=== PATIENT | female | born 1990 | race American Indian/Alaskan Native ===

== ENCOUNTER 2021-09-01 14:47 | Emergency (ER) | payer SELFPAY ==
--- NOTE | 2021-09-01 15:12 | Emergency Department Report ---
ED Female HPI - General Chief complaint: Abdominal Pain Stated complaint: MISSCARRIAGE 18TH/ABD CRAMPING 1WK Time Seen by Provider: 09/01/21 14:58 Source: patient Mode of arrival: Ambulatory Limitations: No Limitations - History of Present Illness Initial comments: Chief complaint: Possible miscarriage HPI: This is a -0-4-1 who presents with possible miscarriage. Patient was evaluated and declined [facility] on August 12. Gestational sac was present on ultrasound. She still had persisted vaginal bleeding since that time. She denies fever. She has mild pelvic cramps. She denies vomiting. According to her estimation she is approximately 14 weeks MD Complaint: vaginal bleeding, pelvic pain -: Gradual, week(s) (Several weeks since August 12) Severity: mild Quality: cramping Consistency: constant Improves with: none Worsens with: none Are you Now?: Yes - Related Data Allergies Allergy/AdvReac Type Severity Reaction Status Date / Time sulfamethoxazole Allergy Swelling Verified 09/01/21 14:55 [From Bactrim] trimethoprim [From Bactrim] Allergy Swelling Verified 09/01/21 14:55 ED Review of Systems ROS: Stated complaint: MISSCARRIAGE 18TH/ABD CRAMPING 1WK Other details as noted in HPI Comment: All other systems reviewed and negative Constitutional: denies: chills, fever, malaise Respiratory: denies: cough Cardiovascular: denies: chest pain Gastrointestinal: abdominal pain. denies: nausea, vomiting Genitourinary: abnormal menses ED Past Medical Hx - Past Medical History Previous Medical History?: Yes Additional medical history: Incomplete miscarriage - Surgical History Past Surgical History?: Yes Additional Surgical History: 2 elective abortions - Social History Smoking Status: Current Every Day Smoker Substance Use Type: Marijuana ED Physical Exam - General Limitations: No Limitations General appearance: alert, in no apparent distress - Head Head exam: Present: atraumatic, normocephalic - Eye Eye exam: Present: normal appearance - ENT ENT exam: Present: mucous membranes moist - Neck Neck exam: Present: normal inspection, full ROM - Respiratory Respiratory exam: Present: normal lung sounds bilaterally. Absent: respiratory distress, wheezes, rales, rhonchi - Cardiovascular Cardiovascular Exam: Present: regular rate, normal rhythm, normal heart sounds. Absent: systolic murmur, diastolic murmur, rubs, gallop - GI/Abdominal GI/Abdominal exam: Present: soft, normal bowel sounds. Absent: distended, tenderness, guarding, rebound - Extremities Exam Extremities exam: Present: normal inspection - Neurological Exam Neurological exam: Present: alert, oriented X3, normal gait - Psychiatric Psychiatric exam: Present: normal affect, normal mood - Skin Skin exam: Present: warm, dry, intact, normal color. Absent: rash ED Course Vital Signs 09/01/21 14:54 Temperature 98.7 F Pulse Rate 78 Respiratory 18 Rate Blood Pressure 117/59 O2 Sat by Pulse 100 Oximetry ED Medical Decision Making - Radiology Data Radiology results: report reviewed Patient Name: MIROSLAVA PRETTY Gender: Female Date of : 1990 Referring Provider: INGA FUENTES Organization: [facility] Accession Number: [id number] Requested Date: September 01, 2021 15:08 Report Status: Final Requested Procedure: 1 Procedure Description: US OB <= 14 wk fetus add gest Modality: US Findings Reporting MD: Moo Medina Dictation Time: September 01, 2021 15:41 Health Education Coordinator: Not available Hvac Journeyman Date: ULTRASOUND OBSTETRIC INDICATION / CLINICAL INFORMATION: Abdominal pain for trimester. Patient states that she miscarried 3 weeks ago Clinical Gestational Age (GA) in weeks, days: 14, 6 TECHNIQUE: Transabdominal and Transvaginal. COMPARISON: None available. FINDINGS: GESTATIONAL SAC: Not seen YOLK SAC: Not seen EMBRYO/FETUS: Not seen ADNEXA: Left ovary is not well visualized. Right ovary is unremarkable. FREE FLUID: None. ADDITIONAL FINDINGS: None. IMPRESSION: 1. No evidence of intrauterine gestation. This likely represents a missed given the provided patient history as well as the clinical age. 2. Nonvisualization left ovary. No adnexal lesion. Signer Name: Moo Medina DO Signed: 09/01/2021 3:41 PM Workstation Name: [email or web address] - Medical Decision Making Complete miscarriage: Upon clarification patient was diagnosed with incomplete miscarriage at [facility]. She had significant amount of bleeding and passage of products. She is concerned about retained products of conception. She now only has mucus-like discharge. hCG also correlates with complete miscarriage. Patient referred to casting coordinator as needed. Blood type B+. No evidence of intrauterine gestation on ultrasound. Critical care attestation.: If time is entered above; I have spent that time in minutes in the direct care of this critically ill patient, excluding procedure time. ED Disposition Clinical Impression: Complete miscarriage Disposition: 01 HOME / SELF CARE / HOMELESS Is pt being admited?: No Does the pt Need Aspirin: No Condition: Stable Instructions: Abdominal Pain (ED), Miscarriage, [id number] Referrals: MICHAEL MCMULLEN MD [Staff Physician] - as needed
--- NOTE | 2021-09-01 16:45 | Ultrasound Report ---
ULTRASOUND OBSTETRIC INDICATION / CLINICAL INFORMATION: Abdominal pain for trimester. Patient states that she miscarried 3 weeks ago Clinical Gestational Age (GA) in weeks, days: 14, 6 TECHNIQUE: Transabdominal and Transvaginal. COMPARISON: None available. FINDINGS: GESTATIONAL SAC: Not seen YOLK SAC: Not seen EMBRYO/FETUS: Not seen ADNEXA: Left ovary is not well visualized. Right ovary is unremarkable. FREE FLUID: None. ADDITIONAL FINDINGS: None. IMPRESSION: 1. No evidence of intrauterine gestation. This likely represents a missed given the provided patient history as well as the clinical age. 2. Nonvisualization left ovary. No adnexal lesion. Signer Name: Moo Medina DO Signed: 09/01/2021 4:41 PM Workstation Name: [email or web address]
[2021-09-01 17:20] VITALS: BP 96/65
== END 2021-09-01 17:10 | disposition home or self-care (01) ==
LOC: ED 14:47
DX: O03.9 Complete or unspecified spontaneous abortion without complication (principal); F17.200 Nicotine dependence, unspecified, uncomplicated; F12.90 Cannabis use, unspecified, uncomplicated; Z72.89 Other problems related to lifestyle; Z3A.14 14 weeks gestation of pregnancy; Z79.899 Other long term (current) drug therapy
CPT/HCPCS: 36415; 76801; 76802; 76817; 84702; 86900; 86901; 99283; 99284

== ENCOUNTER 2021-09-15 14:30 | Emergency (ER) | payer SELFPAY ==
[2021-09-15] MEDS ORDERED: METOCLOPRAMIDE 10 MG/2 ML INJ IV ONE (15:12)
[2021-09-15] MEDS ORDERED: KETOROLAC 30 MG/1 ML INJ IV ONE (15:12)
[2021-09-15] MEDS ORDERED: diphenhydrAMINE 50 MG/ML VIAL IV ONE (15:12)
[2021-09-15] MEDS ORDERED: SODIUM CHLORIDE 0.9% 1000 ML 1,000 ML IV ONE (15:15)
--- NOTE | 2021-09-15 15:16 | Emergency Department Report ---
ED Headache HPI - General Chief Complaint: Headache Stated Complaint: HEADACHE Time Seen by Provider: 09/15/21 14:55 - History of Present Illness Initial Comments: The patient was evaluated in the emergency department for symptoms described in the history of present illness. He/she was evaluated in the context of the global COVID-19 pandemic, which necessitated consideration that the patient might be at risk for infection with the virus that causes COVID-19. Institutional protocols and algorithms that pertain to the evaluation of patients at risk for COVID-19 are in a state of rapid change based on information released by regulatory bodies including the CDC and federal and state organizations. These policies and algorithms were followed during the patient's care in the emergency department. Please note that these policies, procedures and recommendations changed on a rapid basis. 31-year-old -[place] female presents to the emergency room complaining of a headache that she has had for 5 days. She states that is intermittent. She reports it feels like she has a band around her head. She also complains of jaw tightness. She does admit that she has been stressed out. She did take a Covid test today and it was negative. She denies any cough no nasal congestion no runny nose. She states she did take BC yesterday. She also admits that she just feels tired. She states lying down improves and getting up makes it worse. She also admits that she has been thirsty. She has 2 kids 8-year-old 2-year-old. Timing/Duration: other (5 days) Quality: moderate Head Injury Location: frontal, temporal Recent Head Trauma: no recent headache/trauma Modifying Factors: improves with: movement Associated Symptoms: facial pain (Jaw pain at the TMJ), nausea/vomiting (No vomiting). denies: fever/chills, nasal congestion, nasal drainage, sinus infection, stiff neck, vision changes Allergies/Adverse Reactions: Allergies sulfamethoxazole [From Bactrim] Allergy (Verified 09/01/21 14:55) Swelling trimethoprim [From Bactrim] Allergy (Verified 09/01/21 14:55) Swelling Home Medications: Ambulatory Orders No Known Home Medications [No Reported Home Medications] 09/15/21 ED Review of Systems ROS: Stated complaint: HEADACHE Other details as noted in HPI Comment: All other systems reviewed and negative ED Past Medical Hx - Past Medical History Additional medical history: Incomplete miscarriage - Surgical History Additional Surgical History: 2 elective abortions - Social History Smoking Status: Current Every Day Smoker - Medications Home Medications: Home Medications Medication Instructions Recorded Confirmed Last Taken Type No Known Home Medications [No 09/15/21 09/15/21 Unknown History Reported Home Medications] ED Physical Exam - General Limitations: No Limitations General appearance: alert, in no apparent distress - Head Head exam: Present: atraumatic, normocephalic, other (Temporal tenderness and frontal tenderness) - Eye Eye exam: Present: normal appearance, PERRL, EOMI - ENT ENT exam: Present: mucous membranes moist, other (TMJ tenderness bilateral) - Neck Neck exam: Present: normal inspection, full ROM. Absent: tenderness, meningismus - Respiratory Respiratory exam: Present: normal lung sounds bilaterally. Absent: respiratory distress, accessory muscle use - Cardiovascular Cardiovascular Exam: Present: regular rate, normal rhythm. Absent: systolic murmur, diastolic murmur, rubs, gallop - GI/Abdominal GI/Abdominal exam: Present: soft, normal bowel sounds - Extremities Exam Extremities exam: Present: normal inspection, full ROM - Back Exam Back exam: Present: normal inspection - Neurological Exam Neurological exam: Present: alert, oriented X3, normal gait - Expanded Neurological Exam Expanded Cranial nerves: EOM's Intact: Normal, Gag Reflex: Normal, Tongue Deviation: Normal, Nystagmus: Normal, Facial Sensation: Normal, Facial Palsy with Forehead Movement: Normal, Facial Palsy without Forehead Movement: Normal Cerebellar function: Finger to Nose: Normal, Heel to Parra: Normal, Romberg: Normal Upper motor neuron: Surinder Neglect: Normal, Pronator Drift: Normal, Babinski Sign: Normal, Sensory Extinction: Normal Sensory exam: Upper Extremity Light Touch: Normal, Upper Extremity Pin Prick: Normal, Upper Extremity Temperature: Normal, UE 2 Point Discrimination: Normal, Lower Extremity Light Touch: Normal, Lower Extremity Pin Prick: Normal, Lower Extremity Temperature: Normal, LE 2 Point Discrimination: Normal Motor strength exam: RUE: 4, LUE: 4, RLE: 4, LLE: 4 Best Eye Response ([place]): (4) open spontaneously Best Motor Response ([place]): (6) obeys commands Best Verbal Response ([place]): (5) oriented Kerry Total: 15 - Psychiatric Psychiatric exam: Present: normal affect, normal mood - Skin Skin exam: Present: warm, dry, intact, normal color. Absent: rash ED Course Vital Signs 09/15/21 09/15/21 14:34 14:58 Temperature 99.6 F 98.5 F Pulse Rate 86 76 Respiratory 18 12 Rate Blood Pressure 111/64 Blood Pressure 122/73 [Right] O2 Sat by Pulse 100 99 Oximetry ED Medical Decision Making - Medical Decision Making 31-year-old -[place] female presents to the emergency room complaining of a headache that she has had for 5 days. She states that is intermittent. She reports it feels like she has a band around her head. She also complains of jaw tightness. She does admit that she has been stressed out. She did take a Covid test today and it was negative. She denies any cough no nasal congestion no runny nose. She states she did take BC yesterday. She also admits that she just feels tired. She states lying down improves and getting up makes it worse. She also admits that she has been thirsty. She has 2 kids 8-year-old 2-year-old. Blood sugar has been ordered. INT normal saline Toradol 15 mg IV, Benadryl 25 mg IV and Reglan 10 mg IV. The patient presents to the emergency room department with a headache. The patient is now resting comfortably and feels better, is alert talkative, interactive and in no distress. The patient appears well and is able to tolerate p.o. fluids. The repeat examination is unremarkable and benign. The patient is neurologically intact, has a normal mental status, and is ambulatory in the emergency room. The history, exam diagnostic testing (if any) and the patient's current condition do not suggest meningitis, stroke, sepsis, subarachnoid hemorrhage and, intracranial bleeding, encephalitis, temporal arteritis or any other significant pathology to warrant further testing, continued ED treatment, admission, neurological consultation or other specific evaluations at this point. The vital signs have been stable. The patient's condition is stable and appropriate for discharge. The patient will pursue further outpatient evaluation with the primary care provider or other designated or consulting physician as indicated in the discharge instructions. Critical care attestation.: If time is entered above; I have spent that time in minutes in the direct care of this critically ill patient, excluding procedure time. ED Disposition Clinical Impression: Headache Disposition: 01 HOME / SELF CARE / HOMELESS Is pt being admited?: No Does the pt Need Aspirin: No Condition: Stable Additional Instructions: You can take [id number] Excedrin Migraine. Increase your fluid intake advance your diet as tolerated and rest. Referrals: PRIMARY CARE, [Primary Care Provider] - 3-5 Days JESSY PEREZ MD [Staff Physician] - 3-5 Days Forms: Work/School Release Form(ED) Time of Disposition: 16:17
[2021-09-15 16:39] VITALS: BP 121/69
== END 2021-09-15 16:40 | disposition home or self-care (01) ==
LOC: ED 14:30
DX: R51.9 Headache, unspecified (principal); F17.200 Nicotine dependence, unspecified, uncomplicated; Z88.2 Allergy status to sulfonamides; Z88.8 Allergy status to other drugs, medicaments and biological substances
CPT/HCPCS: 96361; 96374; 96375; 99282; J1200; J1885; J2765; J7030; Q0162